=== PATIENT | female | born 1970 | race Caucasian/White ===

== ENCOUNTER 2017-07-29 03:18 | Inpatient (IN) | payer BC ==
[2017-07-29] VITALS (9 sets, daily range): BP systolic 97–128; BP diastolic 55–76
[~2017-07-29] VITALS: Ht 177.8 cm; Wt 59.0 kg
[~2017-07-29 03:18] MED LIST: DICYCLOMINE HCL10 MG PO
[2017-07-29] MEDS ORDERED: Morphine Sulfate 4mg/ml Inj IVP ONE ×2 (03:45→07:00)
[2017-07-29 04:06] LABS: WHITE BLOOD COUNT 15.8 K/UL (4.8-10.8)
[2017-07-29 04:07] LABS: HEMATOCRIT 43.9 % (37.0-47.0); HEMOGLOBIN 15.2 G/DL (12.0-16.0); MEAN CORPUSCULAR VOLUME 95 FL (80-99); PLATELET COUNT 282 K/UL (150-450); RED BLOOD COUNT 4.64 M/UL (4.20-5.40); RED CELL DISTRIBUTION WIDTH 12.3 % (11.6-14.8)
[2017-07-29 04:08] LABS: ANION GAP 5 mmol/L (5-15); BASOPHILS % (AUTO) 0.1 % (0.0-2.0); BLOOD UREA NITROGEN 19 mg/dL (7-18); CALCIUM 9.5 MG/DL (8.5-10.1); CARBON DIOXIDE 33 MMOL/L (21-32); CHLORIDE 102 MMOL/L (98-107); CREATININE 1.1 MG/DL (0.55-1.30); POTASSIUM 3.9 MMOL/L (3.5-5.1); SODIUM 140 MMOL/L (136-145)
[2017-07-29] MEDS ORDERED: Gastrograffin 30ml ORAL ONE (04:10)
[2017-07-29 04:12] LABS: ALANINE AMINOTRANSFERASE 22 U/L (12-78); ALBUMIN 4.5 G/DL (3.4-5.0); ALBUMIN/GLOBULIN RATIO 1.5 (1.0-2.7); ALKALINE PHOSPHATASE 51 U/L (46-116); ASPARTATE AMINO TRANSFERASE 14 U/L (15-37); BILIRUBIN,TOTAL 0.4 MG/DL (0.2-1.0)
--- NOTE | 2017-07-29 04:14 | Emergency Room Report ---
History of Present Illness General Chief Complaint: Abdominal Pain Source: Patient (MABEL HANSON M.D.) Present Illness HPI 46-year-old female presents ED plating of abdominal pain. Started around 10 PM last night. Brought in by EMS. Pain is sharp, 8 out of 10, nonradiating. Denies nausea or vomiting. Patient notes history of intermittent constipation. Has seen GI in the past. Possible IBS. Was seen here 2 years ago for similar pain and had CT which showed a "blockage". Patient however left because of family issues. Patient states she was later admitted to [facility] for a few days for observation. Denies chest pain or shortness of breath. Denies any prior surgical history. No other aggravating or relieving factors. Denies any other associated symptoms (MABEL HANSON M.D.) Allergies: Coded Allergies: NITROFURANTOIN (Unverified Allergy, Unknown, 11/17/14) Patient History Past Medical History: none Past Surgical History: none Pertinent Family History: none Social History: Denies: smoking, alcohol use, drug use Now: No Immunizations: UTD Reviewed Nursing Documentation: PMH: Agreed, PSxH: Agreed (MABEL HANSON M.D.) Nursing Documentation-PMH Past Medical History: No History, Except For (MABEL HANSON M.D.) Review of Systems All Other Systems: negative except mentioned in HPI (MABEL HANSON M.D.) Physical Exam Vital Signs Date Time Temp Pulse Resp B/P (MAP) Pulse Ox O2 Delivery O2 Flow Rate FiO2 07/29/17 03:15 97.3 86 14 128/76 98 Room Air 97.3 Sp02 EP Interpretation: reviewed, normal General Appearance: no apparent distress, alert, GCS 15, non-toxic Head: normocephalic, atraumatic Eyes: bilateral eye normal inspection, bilateral eye PERRL ENT: hearing grossly normal, normal pharynx, no angioedema, normal voice Neck: full range of motion, supple/symm/no masses Respiratory: chest non-tender, lungs clear, normal breath sounds, speaking full sentences Cardiovascular #1: regular rate, rhythm, no edema Cardiovascular #2: 2+ carotid (R), 2+ carotid (L), 2+ radial (R), 2+ radial (L) , 2+ dorsalis pedis (R), 2+ dorsalis pedis (L) Gastrointestinal: normal bowel sounds, soft, non-distended, no guarding, no rebound, tenderness Rectal: deferred Genitourinary: normal inspection, no CVA tenderness Musculoskeletal: back normal, gait/station normal, normal range of motion, non- tender Neurologic: alert, oriented x3, responsive, motor strength/tone normal, sensory intact, speech normal Psychiatric: judgement/insight normal, memory normal, mood/affect normal, no suicidal/homicidal ideation Reflexes: 3+ bicep (R), 3+ bicep (L), 3+ tricep (R), 3+ tricep (L), 3+ knee (R) , 3+ knee (L) Skin: normal color, no rash, warm/dry, well hydrated Lymphatic: no adenopathy (MABEL HANSON M.D.) Medical Decision Making Diagnostic Impression: Primary Impression: Small bowel obstruction ER Course I received signout from Dr Hanson please see above for full hx and physical patient found to have closed loopp SBO on CT Surgery audio production engineer paged 6:55am, Dr Capone aware of pt Pt made NPO, she is stable at bedside Pt's abdomen with generalized tenerness, but soft not peritoneal at this time will place NGT Pt will be admitted to [facility] surg CT ABDOMEN & PELVIS With Contrast: Moderately dilated mid small bowel loops with associated twisting of the mesenteric vasculature and mesenteric edema, stranding, and free fluid. More proximal and distal small bowel loops are relatively decompressed. Findings are consistent with small bowel obstruction, likely closed-loop process. Underlying ischemia not excluded. No free air or pneumatosis. Distended stomach with reflux. No radiopaque gallstones. No pancreatitis or pyelonephritis. No hydronephrosis. Normal caliber abdominal aorta. The appendix is not definitively seen. Probable appendectomy clip in right lower quadrant. Correlate with surgical history. (Carroll Dubon M.D.) Last Vital Signs Date Time Temp Pulse Resp B/P (MAP) Pulse Ox O2 Delivery O2 Flow Rate FiO2 07/29/17 04:08 97.3 07/29/17 03:15 86 14 128/76 98 Room Air (MABEL HANSON M.D.) Disposition: ADMITTED INPATIENT Condition: Serious Referrals: NOT CHOSEN ANIKA/,REFERRING (PCP) MABEL HANSON M.D. Jul 29, 2017 04:14 Carroll Dubon M.D. Jul 29, 2017 06:54
[2017-07-29] MEDS ORDERED: WELLBUTRIN XL150 MG ORAL (04:16)
[2017-07-29] MEDS ORDERED: LEXAPRO10 MG ORAL (04:16)
[2017-07-29 04:52] LABS: NEUTROPHILS % (AUTO) 84.9 % (45.0-75.0)
[2017-07-29 04:53] LABS: EOSINOPHILS % (AUTO) 1.6 % (0.0-3.0); LYMPHOCYTES % (AUTO) 10.1 % (20.0-45.0); MONOCYTES % (AUTO) 2.8 % (1.0-10.0)
[2017-07-29] MEDS ORDERED: Acetaminophen 650 MG SUPP RECTAL PRN ×2 (08:30)
[2017-07-29] MEDS: Docusate 100mg cap ORAL SCH ×2 (09:00→21:00)
[2017-07-29] MEDS: D5 1/2NS 1,000 ML IV SCH ×2 (09:08→18:31)
[2017-07-29] MEDS: Pantoprazole Inj IV SCH (09:09)
[2017-07-29] MEDS: Heparin 5000 units/ml inj SUBQ SCH ×2 (09:10→20:55)
--- NOTE | 2017-07-29 11:16 | Consultation ---
DATE OF CONSULTATION: 07/29/2017 CONSULTING PHYSICIAN: Alli Capone M.D. REQUESTING PHYSICIAN: ER physician. REASON FOR CONSULTATION: Abdominal pain. HISTORY OF PRESENTING ILLNESS: This is a 46-year-old female, who presented to emergency room complaining of abdominal pain since 11 o'clock last night. The pain is in mid abdomen and apparently it is colicky has been associated with nausea, but no vomiting. She had a normal bowel movement early this morning. She claimed that she has had similar episode 2 or 3 years ago which has resolved with conservative treatment. She denies fever, cough, dysuria, or frequency. She has had two laparoscopic surgery for ablation of the endometriosis. PAST MEDICAL HISTORY: She claims to be allergic to Macrobid. She denies asthma, diabetes, hypertension, cardiac or renal diseases. PAST SURGICAL HISTORY: Include laparoscopy and ablation of the endometriosis x2. MEDICATIONS: Currently, she is taking medicine for depression. SOCIAL HISTORY: The patient is a 46-year-old female, with three children. 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 Drinks occasionally. REVIEW OF SYSTEMS: Complains of depression. PHYSICAL EXAMINATION: GENERAL: The patient appeared to be a well-developed, well-nourished, 46-year-old female, lying on gurney, complaining of discomfort in the abdomen. She has received morphine sulfate and at this time, she is pain-free. HEENT: Head is normocephalic and atraumatic. Eyes, pupils are equal, round, and reactive to light. Mouth is clear. NECK: There is no palpable thyromegaly or adenopathy. CHEST: Clear to auscultation and percussion. HEART: There is no gallop or murmur. S1 and S2 are within normal limits. ABDOMEN: Soft and flat. Not tender. There is no palpable organomegaly. Bowel sounds are normal. She has scar of the few trocar site on the abdomen. GENITAL: She is free of hernia. EXTREMITIES: Within normal limits. LABORATORY DATA: CBC has shown WBC of 15,000 with left shift. Chemistry is normal. CAT scan of the abdomen has been interpreted as compatible with small bowel obstruction. ASSESSMENT: Small bowel obstruction. PLAN: At this time, she requires conservative treatment. I have taken the liberty of ordering small bowel follow-through with Gastrografin to better determine the condition of the small bowel. If the conservative treatment was ineffective, she will require exploratory laparotomy. This has been explained to the patient. She understood and agreed. Alli Capone M.D. DR: Maurizio JOB#: [id number] CC: ALBERTO
--- NOTE | 2017-07-29 12:22 | Diagnostic Imaging Report ---
Clinical Indication: Abdominal pain Technique: Patient given oral contrast. IV administration nonionic contrast. Venous phase spiral acquisition obtained through the abdomen and pelvis. Multiplanar reconstructions were generated. Total dose length product 512.65 mGycm. CTDIvol(s) 9.71 mGy. Dose reduction achieved using automated exposure control Comparison: 11/17/2014 Findings: The stomach is distended. There is questionably a small posterior gastric diverticulum at the fundus. Retained or refluxed contrast is seen within the esophagus. There are dilated fluid-filled, partially contrast filled, mid and distal small bowel loops. The most distal small bowel loops are nondilated but fluid-filled. Transition point not definitely identified. The appendix is not definitely identified, but no findings to suggest acute appendicitis are evident. One may be a surgical clip is seen in the region of the cecum so there may have been prior appendectomy. No evidence of diverticulosis or diverticulitis. No free or loculated intraperitoneal air or fluid is evident. The appearance of the small bowel is similar to the previous exam. The gallbladder is mildly distended but no stones or wall thickening or pericholecystic edema demonstrated. The bile ducts, pancreas, spleen, adrenals kidneys are unremarkable. No retroperitoneal or mesenteric mass or adenopathy. There is a retroaortic left renal vein incidentally noted. No pelvic mass or adenopathy. The uterus is retroverted. The included lung bases demonstrate posterior dependent atelectatic changes. Impression: Dilated mid to distal small bowel loops, with probable normal caliber small bowel distal to it, transition point not definitely identified. Findings are concerning for partial small bowel obstruction of indeterminate etiology. Note that appearance is similar to prior study of 11/17/2014. Mildly distended gallbladder without stones or wall thickening Possible gastroesophageal reflux Incidental findings of gastric diverticulum, retroaortic left renal vein This agrees with the preliminary interpretation provided overnight by [facility] teleradiology service. Images also reviewed in person with Dr. Capone The CT scanner at [facility] is accredited by the [employer] and the scans are performed using protocols designed to limit radiation exposure to as low as reasonably achievable to attain images of sufficient resolution adequate for diagnostic evaluation.
--- NOTE | 2017-07-29 12:29 | Diagnostic Imaging Report ---
Indication: Post nasogastric tube placement Technique: Supine view of the upper abdomen Comparison: none Findings: There is a nasogastric tube in place, tip coiled in the gastric fundus, proximal port well beyond the gastroesophageal junction. Recently ingested contrast for the CT scan is seen within the gastric fundus. Excreted contrast is also seen within the renal collecting systems Impression: Satisfactory nasogastric intubation Other findings as noted
[2017-07-29] MEDS: Morphine Sulfate 2mg/ml Inj IVP PRN (12:40)
[2017-07-29 12:44] LABS: APPEARANCE,URINE CLEAR; BILIRUBIN, URINE NEGATIVE (NEGATIVE); GLUCOSE, URINE (UA) NEGATIVE (NEGATIVE); KETONES,URINE 1+ (NEGATIVE); LEUKOCYTE ESTERASE ,URINE 1+ (NEGATIVE); NITRITE,URINE NEGATIVE (NEGATIVE); PH,URINE 7 (4.5-8.0); PROTEIN,URINE 1+ (NEGATIVE); UROBILINOGEN,URINE NORMAL MG/DL (0.0-1.0)
[2017-07-29 12:48] LABS: COLOR,URINE YELLOW
--- NOTE | 2017-07-29 13:07 | History and Physical ---
History of Present Illness General Date patient seen: Jul 29, 2017 Time patient seen: 13:07 Reason for Hospitalization: Small bowel obstruction Present Illness HPI 46y/o female with pmh of endometriosis s/p laparoscopy with fulguration and resection of endometriosis and bilateral salpingectomy, SOB, depression, GERD who presents with acute onset abd pain. Pt states that pain started last night around 10pm while at rest. Pain is shart 8/10 in upper abd/epigastric region. Denies n/v. Has history of intermittent constipation. Did have normal BM yesterday. No melena, BRBPR. Denies f/c, chest pain, SOB, cough, dysuria. Has been seen in [facility] abt 2 years ago for similar pain w/ CT showing SBO which was managed conservatively. In ED, pt had CT a/p with concern for SBO. NGT was placed. Pt was given IVFs, morphine, zofran w/ improvement. Surgery was consulted. Allergies: Coded Allergies: NITROFURANTOIN (Unverified Allergy, Unknown, 11/17/14) Medication History Scheduled Bupropion Hcl* (Wellbutrin Xl*), Unknown Dose ORAL DAILY, (Reported) Dicyclomine Hcl* (Dicyclomine Hcl*), 20 MG PO QID, (Reported) Escitalopram Oxalate* (Lexapro*), Unknown Dose ORAL DAILY, (Reported) Patient History History Provided By: Patient, Medical Record, PMD Healthcare decision maker Resuscitation status Advanced Directive on File Past Medical/Surgical History Past Medical/Surgical History: (1) Endometriosis (2) s/p laparoscopy with fulguration and resection of endometriosis and bilateral salpingectomy (3) Depression (4) SBO (small bowel obstruction) (5) GERD (gastroesophageal reflux disease) Family History Family History: Patient reports no known family medical history. Social History Social History: (1) Social alcohol use Review of Systems Constitutional: Reports: no symptoms Eye: Reports: no symptoms ENT: Reports: no symptoms Respiratory: Reports: no symptoms Cardiovascular: Reports: no symptoms Gastrointestinal: Reports: abdominal pain, constipation Genitourinary: Reports: no symptoms Musculoskeletal: Reports: no symptoms Skin: Reports: no symptoms Psychiatric: Reports: no symptoms Neurological: Reports: no symptoms Endocrine: Reports: no symptoms Hematologic/Lymphatic: Reports: no symptoms Physical Exam Physical Exam Narrative General: alert, cooperative, no distress, appears stated age Head: normocephalic, without obvious abnormality, atraumatic Eyes: conjunctivae/corneas clear. PERRL, EOM's intact Throat: lips, mucosa, and tongue normal. MMM Neck: supple, symmetrical, trachea midline, and no JVD Lungs: clear to auscultation bilaterally Heart: regular rate and rhythm, S1, S2 normal, no murmur, click, rub or gallop Abdomen: soft, +mild TTP of epigastrium w/o rebound/guarding, non-distended, bowel sounds normal; no masses or organomegaly Extremities: extremities normal, atraumatic, no cyanosis or edema Pulses: 2+ and symmetric Skin: skin color, texture, turgor normal; no rashes or lesions Neurologic: grossly normal, no focal deficits Last 24 Hour Vital Signs Date Time Temp Pulse Resp B/P (MAP) Pulse Ox O2 Delivery O2 Flow Rate FiO2 07/29/17 12:06 71 16 100/69 98 Room Air 07/29/17 10:00 97.9 73 16 100/72 99 Room Air 97.9 07/29/17 09:30 97.9 71 15 97/55 98 Room Air 97.9 07/29/17 07:00 72 16 117/62 98 Room Air 07/29/17 04:08 97.3 07/29/17 03:30 97.6 86 14 128/76 98 Room Air 97.6 07/29/17 03:15 97.3 86 14 128/76 98 Room Air 97.3 Intake and Output 07/28/17 07/29/17 19:00 07:00 Intake Total 1000 ml Balance 1000 ml IV Total 1000 ml Laboratory Tests Test 07/29/17 04:00 07/29/17 07:10 07/29/17 12:25 White Blood Count 15.8 K/UL (4.8-10.8) H Red Blood Count 4.64 M/UL (4.20-5.40) Hemoglobin 15.2 G/DL (12.0-16.0) Hematocrit 43.9 % (37.0-47.0) Mean Corpuscular Volume 95 FL (80-99) Mean Corpuscular Hemoglobin 32.7 PG (27.0-31.0) H Mean Corpuscular Hemoglobin Concent 34.6 G/DL (32.0-36.0) Red Cell Distribution Width 12.3 % (11.6-14.8) Platelet Count 282 K/UL (150-450) Mean Platelet Volume 8.4 FL (6.5-10.1) Neutrophils (%) (Auto) 84.9 % (45.0-75.0) H Lymphocytes (%) (Auto) 10.1 % (20.0-45.0) L Monocytes (%) (Auto) 2.8 % (1.0-10.0) Eosinophils (%) (Auto) 1.6 % (0.0-3.0) Basophils (%) (Auto) 0.1 % (0.0-2.0) Sodium Level 140 MMOL/L (136-145) Potassium Level 3.9 MMOL/L (3.5-5.1) Chloride Level 102 MMOL/L (98-107) Carbon Dioxide Level 33 MMOL/L (21-32) H Anion Gap 5 mmol/L (5-15) Blood Urea Nitrogen 19 mg/dL (7-18) H Creatinine 1.1 MG/DL (0.55-1.30) Estimat Glomerular Filtration Rate 53.0 mL/min (>60) Glucose Level 120 MG/DL (74-106) H Calcium Level 9.5 MG/DL (8.5-10.1) Total Bilirubin 0.4 MG/DL (0.2-1.0) Aspartate Amino Transf (AST/SGOT) 14 U/L (15-37) L Alanine Aminotransferase (ALT/SGPT) 22 U/L (12-78) Alkaline Phosphatase 51 U/L (46-116) Total Protein 7.5 G/DL (6.4-8.2) Albumin 4.5 G/DL (3.4-5.0) Globulin 3.0 g/dL Albumin/Globulin Ratio 1.5 (1.0-2.7) Lipase 143 U/L (73-393) Human Chorionic Gonadotropin, Qual Negative Prothrombin Time 10.7 SEC (9.30-11.50) Prothromb Time International Ratio 1.0 (0.9-1.1) Activated Partial Thromboplast Time 28 SEC (23-33) Lactic Acid Level 1.00 mmol/L (0.66-2.22) Urine Color Yellow Urine Appearance Clear Urine pH 7 (4.5-8.0) Urine Specific [place] 1.005 (1.005-1.035) Urine Protein 1+ (NEGATIVE) H Urine Glucose (UA) Negative (NEGATIVE) Urine Ketones 1+ (NEGATIVE) H Urine Occult Blood Negative (NEGATIVE) Urine Nitrite Negative (NEGATIVE) Urine Bilirubin Negative (NEGATIVE) Urine Urobilinogen Normal MG/DL (0.0-1.0) Urine Leukocyte Esterase 1+ (NEGATIVE) H Urine RBC 0-2 /HPF (0 - 2) Urine WBC 2-4 /HPF (0 - 2) Urine Squamous Epithelial Cells Few /LPF (NONE/OCC) Urine Bacteria Few /HPF (NONE) Urine HCG, Qualitative Negative (NEGATIVE) Height (Feet): 5 Height (Inches): 10.00 Weight (Pounds): 130 Medications Current Medications Medications (Trade) Dose Ordered Sig/Rupal Route PRN Reason Start Time Stop Time Status Last Admin Dose Admin Acetaminophen (Tylenol) 650 mg Q4H PRN ORAL Mild Pain (Pain Scale 1-3) 07/29/17 08:30 08/28/17 08:29 Acetaminophen (Tylenol) 650 mg Q4H PRN ORAL fever>100.5 07/29/17 08:30 08/28/17 08:29 Acetaminophen (Tylenol) 650 mg Q4H PRN RECTAL Mild Pain (Pain Scale 1-3) 07/29/17 08:30 08/28/17 08:29 Acetaminophen (Tylenol) 650 mg Q4H PRN RECTAL fever>100.5 07/29/17 08:30 08/28/17 08:29 Bisacodyl (Dulcolax) 10 mg HSPRN PRN RECTAL Constipation 07/29/17 21:00 08/28/17 20:59 Dextrose (Dextrose 50%) STAT PRN IV Hypoglycemia 07/29/17 08:30 08/28/17 08:29 Dextrose/Sodium Chloride 1,000 ml @ 125 mls/hr Q8H IV 07/29/17 09:00 08/28/17 08:59 07/29/17 09:08 Docusate Sodium (Colace) 100 mg EVERY 12 HOURS ORAL 07/29/17 09:00 08/28/17 08:59 Heparin Sodium (Porcine) (Heparin 5000 units/ml) 5,000 units EVERY 12 HOURS SUBQ 07/29/17 09:00 08/28/17 08:59 07/29/17 09:10 Morphine Sulfate (Morphine Sulfate) 2 mg Q3H PRN IVP Moderate Pain (Pain Scale 4-6) 07/29/17 08:30 08/05/17 08:29 07/29/17 12:40 Morphine Sulfate (Morphine Sulfate) 4 mg Q3H PRN IVP Severe Pain (Pain Scale 7-10) 07/29/17 08:30 08/05/17 08:29 Ondansetron HCl (Zofran) 4 mg Q4H PRN IVP Nausea & Vomiting 07/29/17 08:30 08/28/17 08:29 Pantoprazole (Protonix) 40 mg DAILY IV 07/29/17 09:00 08/28/17 08:59 07/29/17 09:09 Polyethylene Glycol (Miralax) 17 gm HSPRN PRN ORAL Constipation 07/29/17 21:00 08/28/17 20:59 Assessment/Plan Problem List: (1) SBO (small bowel obstruction) ICD Codes: K56.609 - Unspecified intestinal obstruction, unspecified as to partial versus complete obstruction SNOMED: 608716081 (2) Leukocytosis Assessment & Plan: likely reactive ICD Codes: D72.829 - Elevated white blood cell count, unspecified SNOMED: 324576329, 570885542 Status: stable Assessment/Plan Admit inpt Gen surg consulted--conservative mgmt for now NPO NGT IVFs Serial abd exams Pain control, bowel regimen Nausea control Supportive care Repeat labs in AM PPI HSQ for DVT ppx FULL CODE D/w pt, RN, SW/CM, surgery regarding mgmgt and dispo. D/w pt's colorectal surgeon Dr. Connor Daniels at [facility] ([phone]) Diane Saini M.D. Jul 29, 2017 13:07
[2017-07-29] MEDS: Morphine Sulfate 4mg/ml Inj IVP PRN ×2 (17:19→20:59)
[2017-07-29] MEDS ORDERED: Miralax 17gm pkt ORAL PRN (21:00)
[2017-07-30] VITALS: BP 102/69
[2017-07-30] MEDS: D5 1/2NS 1,000 ML IV SCH ×4 (00:33→20:48)
[2017-07-30 04:00] VITALS: BP 94/65
[2017-07-30 07:30] LABS: BASOPHILS % (AUTO) 1.1 % (0.0-2.0); EOSINOPHILS % (AUTO) 2.2 % (0.0-3.0); HEMATOCRIT 38.5 % (37.0-47.0); HEMOGLOBIN 12.8 G/DL (12.0-16.0); LYMPHOCYTES % (AUTO) 23.8 % (20.0-45.0); MEAN CORPUSCULAR VOLUME 98 FL (80-99); NEUTROPHILS % (AUTO) 67.9 % (45.0-75.0); PLATELET COUNT 207 K/UL (150-450); RED BLOOD COUNT 3.92 M/UL (4.20-5.40); RED CELL DISTRIBUTION WIDTH 12.1 % (11.6-14.8); WHITE BLOOD COUNT 6.8 K/UL (4.8-10.8)
[2017-07-30] MEDS: Morphine Sulfate 4mg/ml Inj IVP PRN (07:38)
[2017-07-30 07:42] LABS: ALANINE AMINOTRANSFERASE 16 U/L (12-78); ALBUMIN 3.5 G/DL (3.4-5.0); ALBUMIN/GLOBULIN RATIO 1.4 (1.0-2.7); ALKALINE PHOSPHATASE 40 U/L (46-116); ANION GAP 3 mmol/L (5-15); ASPARTATE AMINO TRANSFERASE 11 U/L (15-37); BILIRUBIN,TOTAL 0.3 MG/DL (0.2-1.0); BLOOD UREA NITROGEN 9 mg/dL (7-18); CALCIUM 8.3 MG/DL (8.5-10.1); CARBON DIOXIDE 31 MMOL/L (21-32); CHLORIDE 107 MMOL/L (98-107); CREATININE 0.7 MG/DL (0.55-1.30); POTASSIUM 4.2 MMOL/L (3.5-5.1); SODIUM 141 MMOL/L (136-145)
[2017-07-30 08:03] VITALS: BP 93/64
[2017-07-30] MEDS: Pantoprazole Inj IV SCH (08:54)
[2017-07-30] MEDS: Docusate 100mg cap ORAL SCH ×2 (09:00→20:48)
[2017-07-30] MEDS: Heparin 5000 units/ml inj SUBQ SCH ×2 (09:00→20:51)
--- NOTE | 2017-07-30 09:17 | Diagnostic Imaging Report ---
Indication: Abdominal pain Technique: Supine view of the abdomen Comparison: Reference made to CT scan of earlier the same day Findings: There is a nasogastric tube now present in good position in the gastric fundus. Essentially the entirety of the contrast ingested for the prior CT scan is within the colon, seen as far distally as the sigmoid. Only minimal retained gastric contrast is demonstrated and no definite retained small bowel contrast. No gaseous distention of small bowel demonstrated. Impression: Since prior CT scan of 15 hours earlier, interim forward passage of essentially entirety of ingested contrast into the colon, indicating absence of significant small bowel obstruction Satisfactory nasogastric intubation
[2017-07-30 12:00] VITALS: BP 97/61
[2017-07-30] MEDS ORDERED: SUMAtriptan 50mg tab ORAL PRN ×2 (13:30→14:00)
--- NOTE | 2017-07-30 13:32 | General Progress Note ---
Assessment/Plan Problem List: (1) SBO (small bowel obstruction) ICD Codes: K56.609 - Unspecified intestinal obstruction, unspecified as to partial versus complete obstruction SNOMED: 706137599 (2) Leukocytosis Assessment & Plan: likely reactive ICD Codes: D72.829 - Elevated white blood cell count, unspecified SNOMED: 768492354, [id number] Status: stable Assessment/Plan SBO appears to be resolving Gen surg consulted--conservative mgmt for now Cont NGT Start CLD per surgery IVFs--wean off as tolerating PO Serial abd exams Monitor KUB Pain control, bowel regimen Nausea control Supportive care Repeat labs in AM PPI HSQ for DVT ppx FULL CODE D/w pt, RN, SW/CM, surgery regarding mgmgt and dispo. D/w pt's colorectal surgeon Dr. Connor Daniels at [facility] ([phone]) Subjective Date patient seen: Jul 30, 2017 Time patient seen: 13:32 ROS Limited/Unobtainable: No Constitutional: Reports: no symptoms HEENT: Reports: no symptoms Cardiovascular: Reports: no symptoms Respiratory: Reports: no symptoms Gastrointestinal/Abdominal: Reports: abdominal pain, nausea Genitourinary: Reports: no symptoms Neurologic/Psychiatric: Reports: no symptoms Endocrine: Reports: no symptoms Hematologic/Lymphatic: Reports: no symptoms Allergies: Coded Allergies: NITROFURANTOIN (Unverified Allergy, Unknown, 11/17/14) Subjective No acute o/n events Cont w/ NGT Abd x-ray shows improvement Pt feels better. Abd pain resolved. Some nausea earlier, but no emesis. denies f /c, d/c, chest pain, SOB. No BM or gas yet. Having headaches/migraine Objective Last 24 Hour Vital Signs Date Time Temp Pulse Resp B/P (MAP) Pulse Ox O2 Delivery O2 Flow Rate FiO2 07/30/17 12:00 97.9 68 18 97/61 97 Room Air 97.9 07/30/17 08:08 97.6 07/30/17 08:03 97.6 65 18 93/64 98 Room Air 97.6 07/30/17 07:38 97.5 07/30/17 04:00 97.5 69 16 94/65 96 Room Air 97.5 07/30/17 00:00 97.6 80 17 102/69 96 Room Air 97.6 07/29/17 20:00 97.2 72 18 107/68 97 97.2 07/29/17 18:00 98.3 70 14 100/58 97 Room Air 98.3 07/29/17 18:00 97.7 69 18 103/69 98 Room Air 97.7 07/29/17 17:09 98.3 70 14 100/58 97 Room Air 98.3 07/29/17 14:32 98.1 72 16 104/58 99 Room Air 98.1 Intake and Output 07/29/17 07/30/17 19:00 07:00 Intake Total 942.5 ml 375 ml Output Total 200 ml 250 ml Balance 742.5 ml 125 ml Intake Oral 0 ml IV Total 942.5 ml 375 ml Output Gastric Drainage Total 200 ml 250 ml # Voids 1 2 # Bowel Movements 2 Laboratory Tests 07/30/17 06:35: White Blood Count 6.8#, Red Blood Count 3.92L, Hemoglobin 12.8, Hematocrit 38.5 , Mean Corpuscular Volume 98, Mean Corpuscular Hemoglobin 32.7H, Mean Corpuscular Hemoglobin Concent 33.2, Red Cell Distribution Width 12.1, Platelet Count 207, Mean Platelet Volume 8.2, Neutrophils (%) (Auto) 67.9, Lymphocytes (% ) (Auto) 23.8, Monocytes (%) (Auto) 5.0, Eosinophils (%) (Auto) 2.2, Basophils ( %) (Auto) 1.1, Sodium Level 141, Potassium Level 4.2, Chloride Level 107, Carbon Dioxide Level 31, Anion Gap 3L, Blood Urea Nitrogen 9, Creatinine 0.7, Estimat Glomerular Filtration Rate > 60, Glucose Level 119H, Calcium Level 8.3L , Magnesium Level 1.8, Total Bilirubin 0.3, Aspartate Amino Transf (AST/SGOT) 11L, Alanine Aminotransferase (ALT/SGPT) 16, Alkaline Phosphatase 40L, Total Protein 6.0L, Albumin 3.5, Globulin 2.5, Albumin/Globulin Ratio 1.4 Height (Feet): 5 Height (Inches): 10.00 Weight (Pounds): 130 Objective General: alert, cooperative, no distress, appears stated age Head: normocephalic, without obvious abnormality, atraumatic Eyes: conjunctivae/corneas clear. PERRL, EOM's intact Throat: lips, mucosa, and tongue normal. MMM Neck: supple, symmetrical, trachea midline, and no JVD Lungs: clear to auscultation bilaterally Heart: regular rate and rhythm, S1, S2 normal, no murmur, click, rub or gallop Abdomen: soft, non-tender, non-distended, bowel sounds normal; no masses or organomegaly Extremities: extremities normal, atraumatic, no cyanosis or edema Pulses: 2+ and symmetric Skin: skin color, texture, turgor normal; no rashes or lesions Neurologic: grossly normal, no focal deficits Diane Saini M.D. Jul 30, 2017 13:32
--- NOTE | 2017-07-30 14:12 | General Surgery Progress Note ---
General Surgery-Progress Note Subjective Symptoms: improved Objective Last 24 Hour Vital Signs Date Time Temp Pulse Resp B/P (MAP) Pulse Ox O2 Delivery O2 Flow Rate FiO2 07/30/17 12:00 97.9 68 18 97/61 97 Room Air 97.9 07/30/17 08:08 97.6 07/30/17 08:03 97.6 65 18 93/64 98 Room Air 97.6 07/30/17 07:38 97.5 07/30/17 04:00 97.5 69 16 94/65 96 Room Air 97.5 07/30/17 00:00 97.6 80 17 102/69 96 Room Air 97.6 07/29/17 20:00 97.2 72 18 107/68 97 97.2 07/29/17 18:00 98.3 70 14 100/58 97 Room Air 98.3 07/29/17 18:00 97.7 69 18 103/69 98 Room Air 97.7 07/29/17 17:09 98.3 70 14 100/58 97 Room Air 98.3 07/29/17 14:32 98.1 72 16 104/58 99 Room Air 98.1 I&O Intake and Output 07/29/17 07/30/17 19:00 07:00 Intake Total 942.5 ml 375 ml Output Total 200 ml 250 ml Balance 742.5 ml 125 ml Intake Oral 0 ml IV Total 942.5 ml 375 ml Output Gastric Drainage Total 200 ml 250 ml # Voids 1 2 # Bowel Movements 2 Respiratory: clear Abdomen: soft, flat, non-tender, present bowel sounds Extremities: no tenderness Laboratory Tests Test 07/30/17 06:35 White Blood Count 6.8 K/UL (4.8-10.8) # Red Blood Count 3.92 M/UL (4.20-5.40) L Hemoglobin 12.8 G/DL (12.0-16.0) Hematocrit 38.5 % (37.0-47.0) Mean Corpuscular Volume 98 FL (80-99) Mean Corpuscular Hemoglobin 32.7 PG (27.0-31.0) H Mean Corpuscular Hemoglobin Concent 33.2 G/DL (32.0-36.0) Red Cell Distribution Width 12.1 % (11.6-14.8) Platelet Count 207 K/UL (150-450) Mean Platelet Volume 8.2 FL (6.5-10.1) Neutrophils (%) (Auto) 67.9 % (45.0-75.0) Lymphocytes (%) (Auto) 23.8 % (20.0-45.0) Monocytes (%) (Auto) 5.0 % (1.0-10.0) Eosinophils (%) (Auto) 2.2 % (0.0-3.0) Basophils (%) (Auto) 1.1 % (0.0-2.0) Sodium Level 141 MMOL/L (136-145) Potassium Level 4.2 MMOL/L (3.5-5.1) Chloride Level 107 MMOL/L (98-107) Carbon Dioxide Level 31 MMOL/L (21-32) Anion Gap 3 mmol/L (5-15) L Blood Urea Nitrogen 9 mg/dL (7-18) Creatinine 0.7 MG/DL (0.55-1.30) Estimat Glomerular Filtration Rate > 60 mL/min (>60) Glucose Level 119 MG/DL (74-106) H Calcium Level 8.3 MG/DL (8.5-10.1) L Magnesium Level 1.8 MG/DL (1.8-2.4) Total Bilirubin 0.3 MG/DL (0.2-1.0) Aspartate Amino Transf (AST/SGOT) 11 U/L (15-37) L Alanine Aminotransferase (ALT/SGPT) 16 U/L (12-78) Alkaline Phosphatase 40 U/L (46-116) L Total Protein 6.0 G/DL (6.4-8.2) L Albumin 3.5 G/DL (3.4-5.0) Globulin 2.5 g/dL Albumin/Globulin Ratio 1.4 (1.0-2.7) Assessment Additional Comments small bowel obstruction resolved Plan Additional Comments clear liquid diet JUVENAL WALTER Jul 30, 2017 14:12
[2017-07-30] MEDS: Docusate Sod/Senna tab ORAL SCH ×2 (15:00→17:26)
[2017-07-30 16:05] VITALS: BP 102/61
[2017-07-30] MEDS: Aspirin Baby 81mg ORAL PRN (17:26)
[2017-07-30 20:00] VITALS: BP 120/59
[2017-07-31] VITALS: BP 98/56
[2017-07-31] MEDS: Morphine Sulfate 2mg/ml Inj IVP PRN (00:19)
[2017-07-31 04:00] VITALS: BP 91/57
[2017-07-31] MEDS: D5 1/2NS 1,000 ML IV SCH (07:22)
[2017-07-31 07:31] LABS: BASOPHILS % (AUTO) 1.4 % (0.0-2.0); EOSINOPHILS % (AUTO) 3.3 % (0.0-3.0); HEMATOCRIT 35.7 % (37.0-47.0); HEMOGLOBIN 12.1 G/DL (12.0-16.0); MEAN CORPUSCULAR VOLUME 98 FL (80-99); NEUTROPHILS % (AUTO) 47.3 % (45.0-75.0); PLATELET COUNT 194 K/UL (150-450); RED BLOOD COUNT 3.64 M/UL (4.20-5.40); WHITE BLOOD COUNT 5.6 K/UL (4.8-10.8)
[2017-07-31 07:57] LABS: ANION GAP 5 mmol/L (5-15); BLOOD UREA NITROGEN 5 mg/dL (7-18); CARBON DIOXIDE 30 MMOL/L (21-32); CHLORIDE 109 MMOL/L (98-107); CREATININE 0.9 MG/DL (0.55-1.30); POTASSIUM 3.9 MMOL/L (3.5-5.1); SODIUM 144 MMOL/L (136-145)
[2017-07-31 08:00] VITALS: BP 98/56
[2017-07-31] MEDS: Docusate 100mg cap ORAL SCH ×2 (08:36→08:46)
[2017-07-31] MEDS: Docusate Sod/Senna tab ORAL SCH ×2 (08:36→08:47)
[2017-07-31] MEDS: Pantoprazole Inj IV SCH (08:37)
[2017-07-31] MEDS: Aspirin Baby 81mg ORAL PRN (08:37)
[2017-07-31] MEDS: Heparin 5000 units/ml inj SUBQ SCH (08:38)
--- NOTE | 2017-07-31 09:51 | Diagnostic Imaging Report ---
Indication: Reason For Exam: ABD PAIN Technique: Supine view of the abdomen Comparison: 07/29/2017 Findings: Again demonstrated is contrast within the colon from recent CT scan. This appears decreased from the prior exam. Prominent right lower quadrant unopacified gas-filled bowel loop probably represents sigmoid colon, but could represent a focally dilated small bowel loop. No other evidence of small bowel distention demonstrated. Previously demonstrated nasogastric tube is been removed. Impression: Possible single focally dilated right lower quadrant small bowel loop, versus normal caliber colon. No acute process otherwise. Note that the amount of retained colonic contrast has decreased in the interim
[2017-07-31 12:00] VITALS: BP 112/69
[2017-07-31] MEDS ORDERED: COLACE100 MG ORAL (14:47)
[2017-07-31] MEDS ORDERED: ONDANSETRON ODT4 MG ORAL (14:47)
[2017-07-31 16:00] VITALS: BP 109/60
--- NOTE | 2017-07-31 16:11 | General Surgery Progress Note ---
General Surgery-Progress Note Subjective Symptoms: improved, BM Objective Last 24 Hour Vital Signs Date Time Temp Pulse Resp B/P (MAP) Pulse Ox O2 Delivery O2 Flow Rate FiO2 07/31/17 12:00 98.0 80 18 112/69 100 Room Air 98.0 07/31/17 08:00 98.2 68 18 98/56 98 Room Air 98.2 07/31/17 04:00 97.6 70 17 91/57 95 97.6 07/31/17 00:00 97.8 76 18 98/56 95 97.8 07/30/17 20:00 98.3 74 18 120/59 98 98.3 07/30/17 18:25 98.5 07/30/17 17:26 98.5 I&O Intake and Output 07/30/17 07/31/17 19:00 07:00 Intake Total 1575 ml 1000 ml Balance 1575 ml 1000 ml Intake Oral 450 ml IV Total 1125 ml 1000 ml # Voids 1 2 # Bowel Movements 1 Respiratory: clear Abdomen: soft, flat, non-tender, present bowel sounds Extremities: no tenderness Laboratory Tests Test 07/31/17 06:15 White Blood Count 5.6 K/UL (4.8-10.8) Red Blood Count 3.64 M/UL (4.20-5.40) L Hemoglobin 12.1 G/DL (12.0-16.0) Hematocrit 35.7 % (37.0-47.0) L Mean Corpuscular Volume 98 FL (80-99) Mean Corpuscular Hemoglobin 33.1 PG (27.0-31.0) H Mean Corpuscular Hemoglobin Concent 33.8 G/DL (32.0-36.0) Red Cell Distribution Width 12.0 % (11.6-14.8) Platelet Count 194 K/UL (150-450) Mean Platelet Volume 9.0 FL (6.5-10.1) Neutrophils (%) (Auto) 47.3 % (45.0-75.0) Lymphocytes (%) (Auto) 41.0 % (20.0-45.0) Monocytes (%) (Auto) 7.0 % (1.0-10.0) Eosinophils (%) (Auto) 3.3 % (0.0-3.0) H Basophils (%) (Auto) 1.4 % (0.0-2.0) Sodium Level 144 MMOL/L (136-145) Potassium Level 3.9 MMOL/L (3.5-5.1) Chloride Level 109 MMOL/L (98-107) H Carbon Dioxide Level 30 MMOL/L (21-32) Anion Gap 5 mmol/L (5-15) Blood Urea Nitrogen 5 mg/dL (7-18) L Creatinine 0.9 MG/DL (0.55-1.30) Estimat Glomerular Filtration Rate > 60 mL/min (>60) Glucose Level 98 MG/DL (74-106) Calcium Level 8.0 MG/DL (8.5-10.1) L Assessment Additional Comments SBO resolved Plan Additional Comments discharge home JUVENAL WALTER Jul 31, 2017 16:11
[2017-07-31] MEDS ORDERED: D5 1/2NS 1000ml IV ONE ×2 (16:59)
== END 2017-07-31 17:00 | disposition home or self-care (01) | DRG 390 ==
LOC: EDBD 03:18 → EMR 03:30 → 3E 07:24 → EDBEDREQ 09:39
DX: K56.609 Unspecified intestinal obstruction, unspecified as to partial versus complete obstruction (principal); F32.9 Major depressive disorder, single episode, unspecified; K21.9 Gastro-esophageal reflux disease without esophagitis; Z88.8 Allergy status to other drugs, medicaments and biological substances
CPT/HCPCS: 36415; 74018; 74177; 80048; 80053; 81003; 81025; 83605; 83690; 83735; 84703; 85025; 85610; 85730; 86850; 86900; 86901; 99285; C9399; J2405